=== PATIENT | female | born 1990 | race Caucasian/White ===

== ENCOUNTER 2021-09-25 00:35 | Emergency (ER) | payer BC, MEDICAID ==
[2021-09-25] MEDS ORDERED: FLUCONAZOLE 150 MG TABLET (ED ONLY) PO STA (01:12)
--- NOTE | 2021-09-25 01:13 | ED General ---
General Chief Complaint: Skin/Wound Problems Stated Complaint: SKIN RASH;CHEST PAIN Nursing Triage Note: Pt states she thinks she has a fungal infection that started on her face and neck but is now spreading to her chest. Pt has multiple sores. Pt claims she can see tentacles that move from sore to sore. Pt states she noticed this 3 days ago Source of Information: Patient History of Present Illness Date Seen by Provider: Sep 25, 2021 Time Seen by Provider: 00:41 Initial Comments 31-year-old female presenting with complaints of generalized skin rash. She states that she was concerned that it might be fungus or parasite that [place]. She had been having outbreaks on her chin and face around the time of her period for the last several years and they kept treating it as a staph infection. It would sometimes improve with the antibiotics but she kept having to come back every month. Now recently it has been more constant and not just around the time of her menstrual period. She had a swab done of one of the sores with the clinic and they are doing a fungal culture. She has been trying homeopathic remedies for fungal infection such as eating garlic and applying it to her skin, using essential oils. She is worried that she might have it in her lungs or spine because she feels run down and has burning in her chest. She has videos on her phone where she feels the rash and sores are extruding white matter and connecting or "communicating" with the other sores. She feels she can see little fungal spores with the sores and on her skin. she is anxious that nothing is being done about it and that she will and the fungus or parasite will only be found when they do an autopsy. Associated Systoms: Chest Pain (burning in chest tonight); No Cough, No Diaphoresis, No Fever/Chills, No Headaches, No Loss of Appetite; Malaise; No Nausea/Vomiting; Rash; No Seizure, No Shortness of Air, No Syncope; Weakness Allergies and Home Medications Allergies Coded Allergies: No Known Drug Allergies (Unverified , 09/25/21) Patient Home Medication List Home Medication List Reviewed: Yes Fluconazole (Fluconazole) 200 Mg Tablet, 400 MG PO DAILY Prescribed by: DEANN NELSON on 09/25/21 0147 Ketoconazole (Ketoconazole) 120 Ml Shampoo, 15 ML TP Q48H Prescribed by: DEANN NELSON on 09/25/21 0147 Review of Systems Review of Systems Constitutional: see HPI; No chills, No fever EENTM: no symptoms reported Respiratory: no symptoms reported Cardiovascular: see HPI Gastrointestinal: no symptoms reported Genitourinary: no symptoms reported Musculoskeletal: back pain, muscle pain (diffuse body pains in muscles and joints) Skin: see HPI Psychiatric/Neurological: Anxiety Past Wuearkz-Kuaaav-Zlidls Hx Patient Social History Tobacco Use?: No Use of E-Cig and/or Vaping dev: No Substance use?: No Alcohol Use?: No Pt feels they are or have been: No Physical Exam Vital Signs Vital Signs - First Documented 09/25/21 00:42 Pulse 108 Resp 20 B/P (MAP) 164/88 (113) Pulse Ox 100 O2 Delivery Room Air Capillary Refill : Less Than 3 Seconds Height, Weight, BMI Height: '" Weight: lbs. oz. kg; BMI Method: General Appearance: Anxious HEENT: PERRL/EOMI, Pharynx Normal Neck: Full Range of Motion, Normal Inspection, Non Tender, Supple Respiratory: Chest Non Tender, Lungs Clear, Normal Breath Sounds, No Accessory Muscle Use, No Respiratory Distress Cardiovascular: Regular Rate, Rhythm, Normal Peripheral Pulses Extremity: Normal Capillary Refill, Normal Inspection, No Pedal Edema Neurologic/Psychiatric: Alert, Oriented x3, No Motor/Sensory Deficits, marble setter helper II- XII Norm as Tested, Other (anxious) Skin: Warm/Dry, Rash (diffuse papular erythematous rash with areas of sores that appear to be picked at) Progress/Results/Core Measures Suspected Sepsis SIRS Temperature: Pulse: 108 Respiratory Rate: 20 Blood Pressure 164 /88 Mean: 113 Results/Orders My Orders Orders - DEANN NELSON MD Fluconazole Tablet (Ed Only) (Diflucan T (09/25/21 01:12) Chest Pa/Lat (2 View) (09/25/21 01:12) Vital Signs/I&O 09/25/21 09/25/21 00:42 01:49 Pulse 108 108 Resp 20 20 B/P (MAP) 164/88 (113) 164/88 Pulse Ox 100 100 O2 Delivery Room Air Room Air Capillary Refill : Less Than 3 Seconds Blood Pressure Mean: 113 Progress Note : Progress Note cxr to look for possible fungal ball since she is concerned she has fungus in her body and not just on her skin. Advised that I could treat her with an antifungal by mouth and topically to try and help with her symptoms. If this was a fungal infection it was start helping to clear it up. Obtaining a biopsy of her rash as well as getting in with a industrial workers would both be things could help her. In the meantime follow-up with the clinic about the small that they did on . Diagnostic Imaging Diagonstic Imaging: Xray Plain Films/CT/US/NM/MRI: chest Comments On my review of the two-view chest x-ray she has no acute process. There is no fungal ball or cavitary lesion identified on imaging. Reviewed: Reviewed by Me Departure Impression Primary Impression: Skin rash Additional Impression: Burning in the chest Disposition: HOME, SELF-CARE Condition: Stable Departure-Patient Inst. Decision time for Depature: 01:34 Referrals: WESLEY ASHBY APRN (PCP/Family) Primary Care Physician Patient Instructions: Skin Rash ED, Fungal Skin Rash (DC) Add. Discharge Instructions: Take the medicine for treating fungal infection as well as using the topical antifungal body wash. Follow up with clinic for your culture results of the swab they did. They may need to have you get a biopsy of the rash to better identify what it is and how to treat it. You could request to see a industrial workers, clinical data specialist, for follow up and see what was causing the rash. All discharge instructions reviewed with patient and/or family. Voiced understanding. Scripts Ketoconazole (Ketoconazole) 120 Ml Shampoo 15 ML TP Q48H for fungal skin rash for 30 Days, #240 ML 1 Refill Use as body wash for whole body. Lather and leave on for 5 minutes, then rinse off. Prov: DEANN NELSON MD 09/25/21 Fluconazole (Fluconazole) 200 Mg Tablet 400 MG PO DAILY for fungal skin rash for 30 Days, #60 TAB 0 Refills Prov: DEANN NELSON MD 09/25/21 DEANN NELSON MD Sep 25, 2021 01:13
[2021-09-25] MEDS ORDERED: KETO120S13 TP (01:47)
[2021-09-25] MEDS ORDERED: FLUC200T9 PO (01:47)
[2021-09-25 01:49] VITALS: BP 164/88
--- NOTE | 2021-09-25 06:54 | Diagnostic Imaging Report ---
INDICATION: burning in chest, concern for fungal ball. TECHNIQUE: Two view chest 1:19 AM CORRELATION STUDY: None FINDINGS: The heart size, mediastinal configuration and pulmonary vasculature are within normal limits. The lungs are clear with no consolidating infiltrate. There is no significant pleural effusion or pneumothorax. Visualized osseous structures are unremarkable. IMPRESSION: 1. Negative for acute abnormality of the chest. Dictated by: Dictated on workstation # [id number]
== END 2021-09-25 01:50 | disposition home or self-care (01) ==
LOC: EDUNIT# 00:35 → ER FS 00:39
DX: R21 Rash and other nonspecific skin eruption (principal); R07.89 Other chest pain
CPT/HCPCS: 71046

== ENCOUNTER 2021-10-23 22:50 | Emergency (ER) | payer MEDICAID ==
[~2021-10-23] VITALS: Ht 162.5 cm; Wt 57.6 kg
[~2021-10-23 22:50] MED LIST: FLUC200T9 PO; KETO120S13 TP
[2021-10-23 22:52] VITALS: BP 128/98
[2021-10-23] MEDS ORDERED: IBUPROFEN 600 MG (MOTRIN) TAB PO STA (23:14)
[2021-10-23] MEDS ORDERED: RX-POLY/TRIMETH (POLYTRIM) OP 10 ML BTL OP SCH (23:15)
[2021-10-23] MEDS ORDERED: PLTR10OP OU (23:21)
[2021-10-23] MEDS ORDERED: IBUP-1773 PO (23:21)
--- NOTE | 2021-10-23 23:21 | ED EENT ---
History of Present Illness General Chief Complaint: Eye Problems Stated Complaint: BOTH EYES SWOLLEN,FEVER,BODY ACHES Nursing Triage Note: Patient states that her left eye began to swell this morning and have some discharge. Patient's left eye is swollen and red. Patient doesn't report getting anything in the eye. Source: patient History of Present Illness Date Seen by Provider: Oct 23, 2021 Time Seen by Provider: 22:54 Initial Comments 31-year-old female presenting with bilateral eyelid swelling and purulent drainage. She states that she had her eyes dilated on and then Monday started to have swelling to her eyelids. When she woke up this morning her eyes were red and she had swelling and matting as well as purulent drainage. She was having difficulty seeing out of the eye because of the swelling and drainage. She has felt like she was running a fever and having body aches. She has lymph nodes that are swollen and tender and her neck. She does have multiple sores on her face and upper trunk that are healing. She had been seen at the end of August for a diffuse rash with multiple sores all over her body and that has significantly improved. She is not running a fever tonight here in the emergency department. She states that she had to wait for a ride before she could come be seen so she was not able to get in to an urgent care clinic during the day. Timing/Duration: abrupt Severity: moderate Location: eye (R), eye (L) Prearrival Treatment: no prearrival treatment Associated Symptoms: No change in hearing, No cough, No drooling, No ear drainage; facial pain/swelling (Eyelid swelling bilaterally), fever (Subjective), malaise; No nasal congestion/drainage, No poor fluid intake, No poor solids intake, No sinus infection, No sore throat, No tooth pain, No voice change Allergies and Home Medications Allergies Coded Allergies: No Known Drug Allergies (Unverified , 09/25/21) Patient Home Medication List Home Medication List Reviewed: Yes Fluconazole (Fluconazole) 200 Mg Tablet, 400 MG PO DAILY Prescribed by: DEANN NELSON on 09/25/21 0147 Ibuprofen (Ibuprofen) 600 Mg Tablet, 600 MG PO Q8H PRN for pain/inflammation Prescribed by: DEANN NELSON on 10/23/21 1871 Ketoconazole (Ketoconazole) 120 Ml Shampoo, 15 ML TP Q48H Prescribed by: DEANN NELOSN on 09/25/21 0147 Polymyxin B Sulf/Trimethoprim (Polymyxin B-Tmp Eye Drops) 10,000 Unit-1 Mg/Ml Drops, 1 DROP OU Q4H Prescribed by: DEANN NELSON on 10/23/21 2321 Review of Systems Review of Systems Constitutional: see HPI; No chills; malaise Eyes: Blurred Vision, Drainage, Inflammation; Denies Photophobia, Denies Vision Changes Ears: Denies Dizziness, Denies Tinnitus, Denies Bloody Discharge, Denies Clear Discharge, Denies Purulent Discharge Nose: denies clots, denies congestion, denies epistaxis, denies pain, denies bloody discharge, denies clear discharge Mouth: no symptoms reported Throat: no symptoms reported Respiratory: no symptoms reported Cardiovascular: no symptoms reported Gastrointestinal: no symptoms reported Musculoskeletal: muscle pain (Generalized body aches and muscle pain) Skin: change in color (Mild erythema and swelling to bilateral eyelids), rash (Improving skin rash with healing sores primarily still present on the face) Neurological: Anxiety Hematologic/Lymphatic: Swollen Glands (Anterior and posterior cervical lymph node chains) Past Tpfwdoa-Yzrdqb-Opzdlf Hx Patient Social History Tobacco Use?: No Use of E-Cig and/or Vaping dev: Yes Substance use?: No Alcohol Use?: No Pt feels they are or have been: No Physical Exam Vital Signs Vital Signs - First Documented 10/23/21 22:52 Temp 36.9 Pulse 93 Resp 16 B/P (MAP) 128/98 (108) Pulse Ox 99 O2 Delivery Room Air Height, Weight, BMI Height: '" Weight: lbs. oz. kg; 21.00 BMI Method: General Appearance: thin, other (Anxious) Eyes: bilateral eye PERRL, bilateral eye EOMI, bilateral eye conjunctival infla mmation, bilateral eye lid inflammation Nose: normal inspection Mouth/Throat: normal mouth inspection; No pharynx swelling, No tonsillar exudate Neck: full range of motion, supple, lymphadenopathy (R), lymphadenopathy (L) Cardiovascular: normal peripheral pulses, regular rate, rhythm Respiratory: chest non-tender, lungs clear, normal breath sounds Neurologic/Psychiatric: alert Skin: warm/dry, other (Mild erythema and swelling bilateral Eyelids) Progress/Results/Core Measures Results/Orders My Orders Orders - DEANN NELSON MD Rx-Poly/Trimeth Ophth (Rx-Polytrim Ophth (10/23/21 23:15) Ibuprofen Tablet (Motrin Tablet) (10/23/21 23:14) Vital Signs/I&O 10/23/21 22:52 Temp 36.9 Pulse 93 Resp 16 B/P (MAP) 128/98 (108) Pulse Ox 99 O2 Delivery Room Air Blood Pressure Mean: 108 Progress Progress Note : Progress Note Counseled patient that the dilation of her eyes 24 hours prior to the swelling and irritation was unlikely to be the cause. If she was going to have a reaction to any of the eyedrops and evaluation for her dilated eye exam I would expect that to have happened that day or that evening rather than over 24 hours later. She likely has either viral or bacterial conjunctivitis and eyelid inflammation. In terms of her swollen lymph nodes this may still be reactive to her healing sores on her face neck. Will try ibuprofen for anti-inflammatory effect and use Polytrim antibiotic eyedrops 1 drop to each eye every 4 hours while awake for the next 7 days. Prescription sent to the pharmacy for an additional bottle of the antibiotic eyedrop in case the 1 bottle from here was n ot enough for the 7-day course. Also sent a prescription for ibuprofen for inflammation and pain as patient states that she does not have any of that currently at home. Encouraged to follow-up through the clinic for continued concerns Departure Impression Primary Impression: Acute conjunctivitis, bilateral Qualified Codes: H10.33 - Unspecified acute conjunctivitis, bilateral Additional Impressions: Cervical lymphadenopathy Generalized body aches Disposition: 01 HOME, SELF-CARE Condition: Stable Departure-Patient Inst. Decision time for Depature: 23:17 Referrals: ENOCH LOMBARDI MD (PCP/Family) Primary Care Physician Patient Instructions: How to Use Eye Drops and Eye Ointment ED, Conjunctivitis ([facility]) ED Add. Discharge Instructions: Use the eye drops by putting 1 drop to each eye every 4 hours while awake. Use this for the next 7 days. Take the ibuprofen to help with body aches and inflammation of the lymph nodes. Check with clinic for continued problems or if not improving. All discharge instructions reviewed with patient and/or family. Voiced understanding. Scripts Polymyxin B Sulf/Trimethoprim (Polymyxin B-Tmp Eye Drops) 10,000 Unit-1 Mg/Ml Drops 1 DROP OU Q4H for Conjunctivitis for 7 Days, #10 ML 0 Refills Prov: DEANN NELSON MD 10/23/21 Ibuprofen (Ibuprofen) 600 Mg Tablet 600 MG PO Q8H PRN for pain/inflammation for 15 Days, #45 TAB 0 Refills Prov: DEANN NELSON MD 10/23/21 DEANN NELSON MD Oct 23, 2021 23:21
== END 2021-10-23 23:25 | disposition home or self-care (01) ==
LOC: EDUNIT# 22:50 → ER FS 22:52
DX: H10.33 Unspecified acute conjunctivitis, bilateral (principal); R59.0 Localized enlarged lymph nodes; R52 Pain, unspecified
CPT/HCPCS: 99283

== ENCOUNTER 2021-12-26 08:56 | Emergency (ER) | payer MEDICAID ==
[~2021-12-26] VITALS: Ht 162.6 cm; Wt 63.5 kg
[~2021-12-26 08:56] MED LIST changes: +IBUP-1773 PO; +PLTR10OP OU
[2021-12-26 09:00] VITALS: BP 132/66
--- NOTE | 2021-12-26 09:34 | ED Integumentary General ---
General Chief Complaint: Skin/Wound Problems Stated Complaint: RASH; LETHARGY; HEADACHE; COUGH Nursing Triage Note: Patient reports she has had a rash for 2 years on her face and chest. She initially stated to registration that she was in [place] 6 months ago and believes she has a parasitic infection from that visit. Patient states to this policy writer that she was in [place] one year ago and a medical professional there took a blood sample from the patient, spun it down, and injected the patient's own serum into her face. Patient states she believes this is where her rash originated. Patient then told this policy writer that she was in [place] 2 years ago and believes she contracted a parasitic infection at that time. Multiple sores present to patient's face and chest. 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 Source: patient Exam Limitations: no limitations History of Present Illness Date Seen by Provider: Dec 26, 2021 Time Seen by Provider: 09:00 Initial Comments 31-year-old female with past medical history of depression coming in due to concerns for skin lesions. She says she has been dealing with these for years, typically they pop up on her face, and she is concerned she has parasites and/or these fibers that move around in her skin. She does pick at her skin often and has to pick it off trying to get these out. This seems to come and go. She is concerned that she got PRP injections a couple years ago and this could have started it. She also was living in [place] with a [place] family, and she is unsure if she got anything from that. She has seen the licensing specialist in [place], [place] about 6 months ago and was told she had impetigo at that time and was started on mupirocin. She denies any other acute complaints at this time Allergies and Home Medications Allergies Coded Allergies: No Known Drug Allergies (Unverified , 09/25/21) Patient Home Medication List Home Medication List Reviewed: Yes Albendazole (Albendazole) 200 Mg Tablet, 400 MG PO DAILY Prescribed by: OSCAR WHALEN on 12/26/21 0940 Fluconazole (Fluconazole) 200 Mg Tablet, 400 MG PO DAILY Prescribed by: DEANN NELSON on 09/25/21 0147 Ibuprofen (Ibuprofen) 600 Mg Tablet, 600 MG PO Q8H PRN for pain/inflammation Prescribed by: DEANN NELSON on 10/23/21 2321 Ketoconazole (Ketoconazole) 120 Ml Shampoo, 15 ML TP Q48H Prescribed by: DEANN NELSON on 09/25/21 0147 Ketorolac Tromethamine (Ketorolac Tromethamine) 10 Mg Tablet, 10 MG PO Q8H Prescribed by: OSCAR WHALEN on 12/26/21 0935 Polymyxin B Sulf/Trimethoprim (Polymyxin B-Tmp Eye Drops) 10,000 Unit-1 Mg/Ml Drops, 1 DROP OU Q4H Prescribed by: DEANN NELSON on 10/23/21 2321 Sulfamethoxazole/Trimethoprim (Bactrim Ds Tablet) 1 Each Tablet, 1 EACH PO BID Prescribed by: OSCAR WHALEN on 12/26/21 0935 Review of Systems Review of Systems Constitutional: No fever EENTM: No blurred vision Respiratory: no symptoms reported Cardiovascular: no symptoms reported Gastrointestinal: no symptoms reported Genitourinary: no symptoms reported Musculoskeletal: no symptoms reported Skin: rash Psychiatric/Neurological: No Symptoms Reported Endocrine: No Symptoms Reported Hematologic/Lymphatic: No Symptoms Reported All Other Systems Reviewed Negative Unless Noted: Yes Past Vqtpznm-Nklqvh-Shjeud Hx Patient Social History Smoking Status: Former Smoker Use of E-Cig and/or Vaping dev: Yes Substance use?: Yes Substance type: Marijuana Alcohol Use?: No Pt feels they are or have been: No Past Medical History Surgeries: No Physical Exam Vital Signs Vital Signs - First Documented 12/26/21 09:00 Temp 36.3 Pulse 104 Resp 18 B/P (MAP) 132/66 (88) Pulse Ox 100 O2 Delivery Room Air Capillary Refill : Less Than 3 Seconds General Appearance: WD/WN, no apparent distress HEENT: PERRL/EOMI, normal ENT inspection, pharynx normal Neck: non-tender, full range of motion, supple, normal inspection Cardiovascular: regular rate, rhythm, no edema, no murmur Respiratory: chest non-tender, lungs clear, normal breath sounds, no respiratory distress, no accessory muscle use Gastrointestinal: normal bowel sounds, non tender, soft; No distended, No guarding, No rebound Back: normal inspection, no CVA tenderness Extremities: normal range of motion, non-tender, normal inspection, no pedal edema, no calf tenderness, normal capillary refill Neurologic/Psychiatric: no motor/sensory deficits, alert, normal mood/affect Skin: normal color, warm/dry, other (Erythematous regions on her forehead, chest, hands with excoriations and not areas were she has picked off some skin with now some shallow ulcerations) Lymphatic: no adenopathy Progress/Results/Core Measures Results/Orders My Orders Orders - OSCAR WHALEN MD Ketorolac Injection (Toradol Injection) (12/26/21 09:45) Medications Given in ED Current Medications Medications Dose Ordered Sig/Jayjay Route Start Time Stop Time Status Last Admin Dose Admin Ketorolac Tromethamine 15 mg ONCE ONCE IM 12/26/21 09:45 12/26/21 09:46 DC 12/26/21 09:58 15 MG Vital Signs/I&O 12/26/21 09:00 Temp 36.3 Pulse 104 Resp 18 B/P (MAP) 132/66 (88) Pulse Ox 100 O2 Delivery Room Air Blood Pressure Mean: 88 Progress Progress Note : Progress Note 31-year-old female with above history coming in due to concerns for skin lesions. ABCs were intact and vitals were stable on presentation. Physical exam revealed excoriations and areas with obvious she has picked off skin at least the most peripheral layers. My concern would be for infection over the top of this given she keeps breaking the skin barrier. We will start her on antibiotics. I discussed that this is very similar to Morgellons disease, and that antiparasitic treatments do not work. I discussed that she needs to find a doctor that she knows very well and have regular counseling in regards to this. I also recommended seeing a sharepoint developer in [place] so they can be sure there is no other formal diagnosis that is being missed. Update, at discharge patient was distressed that she has been on antibiotics before. She says she is tried also antifungals before. She says she really wants to try an antiparasitic at least 1 time. Given that she was in the topical region for many years, does have some skin findings, I will attempt this 1 time to treat with albendazole. I discussed that if she were to present here again I likely would never do the same unless there are more consistent findings. Departure Impression Primary Impression: Morgellons disease Additional Impression: Impetigo Disposition: 01 HOME, SELF-CARE Condition: Stable Departure-Patient Inst. Decision time for Depature: 09:33 Referrals: ENOCH LOMBARDI MD (PCP) Primary Care Physician Patient Instructions: Impetigo ED Add. Discharge Instructions: I do think you have Moregellons, which is very difficult to treat. There is no single medicine that helps, and medicines for parasites do not help. We will attempt an antiparasitic medicine one time given you were [place]. This can be harsh on your body, so it is not recommended to repeat this treatment. Take 400mg of albendazole for 2 days and then save the 3rd dose for 2 weeks from now. I do want you to see a sharepoint developer at which can take some time to get into. They can see if there is anything else that can be potentially treated. I am concerned that you do have an infection over the top of this from picking on the skin. You will be on an antibiotic for the next week. You will also be on ketorolac for pain. Do not take ibuprofen or naproxen with this. You can take Tylenol with it. Scripts Albendazole (Albendazole) 200 Mg Tablet 400 MG PO DAILY for 3 Days, #6 TAB Prov: OSCAR WHALEN MD 12/26/21 Ketorolac Tromethamine (Ketorolac Tromethamine) 10 Mg Tablet 10 MG PO Q8H for 4 Days, #12 TAB Prov: OSCAR WHALEN MD 12/26/21 Sulfamethoxazole/Trimethoprim (Bactrim Ds Tablet) 1 Each Tablet 1 EACH PO BID for 7 Days, #14 TAB Prov: OSCAR WHALEN MD 12/26/21 Work/School Note: Work Release Form Date Seen in the Emergency Department: Dec 26, 2021 Return to Work: Dec 28, 2021 Restrictions: No Restrictions OSCAR WHALEN MD Dec 26, 2021 09:34
[2021-12-26] MEDS ORDERED: KETO10TA PO (09:35)
[2021-12-26] MEDS ORDERED: SULF1TAB38 PO (09:35)
[2021-12-26] MEDS ORDERED: ALBE200T2 PO (09:40)
[2021-12-26] MEDS ORDERED: KETOROLAC 30 MG/ML VIAL IM ONE (09:45)
== END 2021-12-26 10:00 | disposition home or self-care (01) ==
LOC: EDUNIT# 08:56 → ER FS 08:59
DX: L98.8 Other specified disorders of the skin and subcutaneous tissue (principal); L01.00 Impetigo, unspecified; Z87.891 Personal history of nicotine dependence
CPT/HCPCS: 99284

== ENCOUNTER → 2021-12-29 | Outpatient (CLI) | payer MEDICAID ==
[~2021-12-29] MED LIST changes: +ALBE200T2 PO; +KETO10TA PO; +LIDO30CR44 TP; +SULF1TAB38 PO
== END ==
LOC: LABNPT 18:04
PROVIDERS: ATTEND Registered Nurse Emergency
DX: R19.5 Other fecal abnormalities (principal)
CPT/HCPCS: 87328; 87329

== ENCOUNTER → 2021-12-29 | Outpatient (CLI) | payer MEDICAID ==
[2021-12-29 16:08] LABS: BASOPHILS # (AUTO) 0.1 10^3/uL (0.0-0.1); BASOPHILS % (AUTO) 1 % (0-10); EOSINOPHILS # (AUTO) 0.1 10^3/uL (0.0-0.3); EOSINOPHILS % (AUTO) 1 % (0-10); HEMATOCRIT 35 % (35-52); HEMOGLOBIN 11.5 g/dL (11.5-16.0); LYMPHOCYTES # (AUTO) 2.1 10^3/uL (1.0-4.0); LYMPHOCYTES % (AUTO) 43 % (12-44); MEAN CORPUSCULAR HEMOGLOBIN 27 pg (25-34); MEAN CORPUSCULAR HGB CONC 33 g/dL (32-36); MEAN CORPUSCULAR VOLUME 82 fL (80-99); MEAN PLATELET VOLUME 8.9 fL (9.0-12.2); MONOCYTES # (AUTO) 0.5 10^3/uL (0.0-1.0); MONOCYTES % (AUTO) 10 % (0-12); NEUTROPHILS # (AUTO) 2.2 10^3/uL (1.8-7.8); NEUTROPHILS % (AUTO) 45 % (42-75); PLATELET COUNT 254 10^3/uL (130-400); WHITE BLOOD COUNT 4.9 10^3/uL (4.3-11.0)
--- NOTE | 2021-12-29 16:23 | Diagnostic Imaging Report ---
INDICATION: Abdominal pain. COMPARISON: None. FINDINGS: Single supine radiographic view of the abdomen was obtained and demonstrates nondistended loops of small bowel. There is no large collection of free peritoneal air. Moderate air and stool are seen scattered throughout the colon. No unexpected extraosseous calcifications or radiopaque foreign bodies are seen. Bony structures show no gross acute abnormalities. IMPRESSION: 1. Nonobstructed small bowel gas pattern. 2. Moderate colonic air and stool. Please correlate for constipation. Dictated by: Dictated on workstation # [id number]
[2021-12-29 16:39] LABS: BILIRUBIN,TOTAL 0.3 MG/DL (0.1-1.0); CALCIUM 8.8 MG/DL (8.5-10.1); CREATININE SERUM 0.67 MG/DL (0.60-1.30); POTASSIUM 4.1 MMOL/L (3.6-5.0); TOTAL PROTEIN 7.1 GM/DL (6.4-8.2)
[2021-12-29 16:40] LABS: ALBUMIN 4.2 GM/DL (3.2-4.5)
[2021-12-30 15:56] LABS: FREE T4 (FREE THYROXINE) 1.01 NG/DL (0.70-1.48)
== END ==
LOC: LAB FS 15:47
PROVIDERS: ATTEND Registered Nurse Emergency
DX: R19.5 Other fecal abnormalities (principal); R53.83 Other fatigue; R10.9 Unspecified abdominal pain
CPT/HCPCS: 36415; 74018; 80053; 84439; 84443; 85025

== ENCOUNTER 2021-12-30 17:54 | Emergency (ER) | payer MEDICAID ==
[~2021-12-30] VITALS: Ht 162.6 cm; Wt 61.2 kg
[~2021-12-30 17:54] MED LIST changes: -LIDO30CR44 TP
[2021-12-30 18:00] VITALS: BP 134/74
--- NOTE | 2021-12-30 18:12 | ED Integumentary General ---
General Stated Complaint: PAINFUL ALL OVER BODY RASH History of Present Illness Date Seen by Provider: Dec 30, 2021 Time Seen by Provider: 18:11 Initial Comments 31-year-old female presents with painful rash. Patient was seen here on 12/26/[address] Whalen. 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 patient has been dealing with a "rash" for years. She saw a supervisor winding department 6 months ago in [place] and was given mupirocin for impetigo. Patient will has been on multiple antibiotics multiple times and wanted to try an antiparasitic. Patient reports that the symptoms seem to come and go. She reports that the symptoms as far as the rash is improving but it very "painful" and that she wants something for the pain. Patient was seen by Dr. Lombardi yesterday and started an outpatient evaluation. Lab review shows no acute findings on her labs. Patient keeps asking "is or something in my chart" that you will give me pain medicine. Patient has no new findings and has been dealing with this "rash" for 4 years Allergies and Home Medications Allergies Coded Allergies: No Known Drug Allergies (Unverified , 09/25/21) Patient Home Medication List Home Medication List Reviewed: Yes Albendazole (Albendazole) 200 Mg Tablet, 400 MG PO DAILY Prescribed by: OSCAR WHALEN on 12/26/21 0940 Fluconazole (Fluconazole) 200 Mg Tablet, 400 MG PO DAILY Prescribed by: DEANN NELSON on 09/25/21 014 Ibuprofen (Ibuprofen) 600 Mg Tablet, 600 MG PO Q8H PRN for pain/inflammation Prescribed by: DEANN NELSON on 10/23/21 232 Ketoconazole (Ketoconazole) 120 Ml Shampoo, 15 ML TP Q48H Prescribed by: DEANN NELSON on 09/25/21 014 Ketorolac Tromethamine (Ketorolac Tromethamine) 10 Mg Tablet, 10 MG PO Q8H Prescribed by: OSCAR WHALEN on 12/26/21 0935 Polymyxin B Sulf/Trimethoprim (Polymyxin B-Tmp Eye Drops) 10,000 Unit-1 Mg/Ml Drops, 1 DROP OU Q4H Prescribed by: DEANN NELSON on 10/23/21 232 Sulfamethoxazole/Trimethoprim (Bactrim Ds Tablet) 1 Each Tablet, 1 EACH PO BID Prescribed by: OSCAR WHALEN on 12/26/21 0935 Review of Systems Review of Systems Constitutional: No chills, No fever EENTM: no symptoms reported Respiratory: no symptoms reported Cardiovascular: no symptoms reported Gastrointestinal: no symptoms reported Genitourinary: no symptoms reported Musculoskeletal: see HPI Skin: see HPI Psychiatric/Neurological: See HPI Endocrine: No Symptoms Reported Past Strcyok-Lzrkfa-Gacgfs Hx Past Medical History Surgeries: No Physical Exam Vital Signs Vital Signs - First Documented 12/30/21 18:00 Temp 36.8 Pulse 117 Resp 18 B/P (MAP) 134/74 (94) Pulse Ox 100 O2 Delivery Room Air Capillary Refill : General Appearance: other (Anxious, agitated) HEENT: PERRL/EOMI Cardiovascular: normal peripheral pulses, regular rate, rhythm Respiratory: lungs clear Gastrointestinal: non tender, soft Extremities: normal range of motion Neurologic/Psychiatric: alert, oriented x 3 Skin: other (Mild rash over her chest wall that appears to be excoriations of where she has been itching and may be mildly infected.) Progress/Results/Core Measures Results/Orders My Orders Orders - CHRISTIANO HUA DO Ketorolac Injection (Toradol Injection) (12/30/21 18:22) Lidocaine 4% Cream (Lmx 4 Cream) (12/30/21 18:30) Vital Signs/I&O 12/30/21 18:00 Temp 36.8 Pulse 117 Resp 18 B/P (MAP) 134/74 (94) Pulse Ox 100 O2 Delivery Room Air Progress Progress Note : Progress Note Patient was repeatedly asking for something for pain. I discussed with her why she kept asking what in her chart and what she is requesting for pain. I politely told her under no circumstance would she be receiving a narcotic pain medication from me for this. I did recommend a topical pain medication [id number] and she reports that she "does not have any money" patient is also wants an answer on her rash. I discussed with her that that we are in emergency room and that she has an outpatient evaluation started by Dr. Lombardi. That her rash has been going on for years will not be diagnosed to the emergency room. I recommended she also get a second opinion if she did not like her opinion of the previous supervisor winding department and does not want to return. I will prescribe her 4% topical lidocaine for pain. She was prescribed meloxicam by Dr. Lombardi which she can continue. Once again I informed her that she will not receive any stronger pain medication for me. She was discharged home and is to follow-up on an outpatient basis for further treatment Departure Impression Primary Impression: Morgellons disease Additional Impression: Skin rash Disposition: HOME, SELF-CARE Condition: Stable Departure-Patient Inst. Referrals: JAYNE MILES APRN (PCP) Primary Care Physician ENOCH LOMBARDI MD (Family) Primary Care Physician Add. Discharge Instructions: Please continue your medications prescribed by Dr. Whalen after ER visit a couple days ago Please follow-up with Dr. Lombardi for continuing outpatient evaluation that she is already started I would recommend you follow-up with a supervisor winding department in [place] for a second opinion Scripts Lidocaine (Lidocaine) 5 % Cream..g. 30 GM TP TID, #1 EA Prov: CHRISTIANO HUA DO 12/30/21 CHRISTIANO HUA DO Dec 30, 2021 18:11
[2021-12-30] MEDS ORDERED: KETOROLAC 30 MG/ML VIAL IM STA (18:22)
[2021-12-30] MEDS ORDERED: LIDOCAINE 4% CREAM 5 GM (LMX) TOP ONE (18:30)
[2021-12-30] MEDS ORDERED: LIDO30CR44 TP (18:46)
== END 2021-12-30 18:56 | disposition home or self-care (01) ==
LOC: EDUNIT# 17:54 → ER FS 17:55
DX: L98.8 Other specified disorders of the skin and subcutaneous tissue (principal); Z28.310 Unvaccinated for COVID-19
CPT/HCPCS: 96372; 99284